=== PATIENT | male | born 2000 | race Caucasian/White ===

== ENCOUNTER 2023-01-31 03:05 | Emergency (ER) | payer OTHER, MEDICAID ==
[~2023-01-31] VITALS: Ht 175.3 cm; Wt 90.7 kg
[2023-01-31 03:07] VITALS: BP 145/89
[2023-01-31 03:29] VITALS: BP 145/89
--- NOTE | 2023-01-31 03:29 | NUR ---
Patient discharged with v/s stable accompanied by [facility]. Written and verbal after care instructions given and explained. Patient verbalized understanding. Ambulatory with steady gait. All questions addressed prior to discharge. Advised to follow up with PMD.
--- NOTE | 2023-01-31 03:29 | NUR ---
Pt seen and evaluated by JACOB
== END 2023-01-31 03:29 ==
LOC: EDBD 03:05 → MED 03:05
DX: Z02.89 Encounter for other administrative examinations (principal); V49.88XA Car occupant (driver) (passenger) injured in other specified transport accidents, initial encounter; Y93.89 Activity, other specified; Y92.89 Other specified places as the place of occurrence of the external cause; Y99.8 Other external cause status
CPT/HCPCS: 99283